=== PATIENT | female | born 1950 | race African-American/Black ===

== ENCOUNTER 2017-07-25 09:14 | Emergency (ER) | payer OTHER ==
[~2017-07-25] VITALS: Ht 180.3 cm; Wt 84.0 kg
[2017-07-25] MEDS ORDERED: HYDROCODONE/ACETAMINOPHEN 5/325MG TABLET PO ONE (10:15)
[2017-07-25 10:25] LABS: BASOPHILS % 0.9 % (0.0-2.0); EOSINOPHILS % 1.6 % (0.0-5.0); HEMOGLOBIN. 13.8 g/dL (12.0-16.0); LYMPHOCYTES % 27.8 % (20.0-50.0); MEAN CORPUSCULAR VOLUME 98.4 fL (81.0-99.0); MONOCYTES % 7.6 % (2.0-8.0); NEUTROPHILS % 62.1 % (40.0-76.0); PLATELET 257 x1000/uL (130-400); RED BLOOD CELL COUNT 4.17 mill/uL (4.2-5.4); RED CELL DISTRIBUTION WIDTH 13.6 % (11.6-14.6)
[2017-07-25 10:32] LABS: CHLORIDE 104 mEq/L (98-107)
[2017-07-25 10:38] LABS: PARTIAL THROMBOPLASTIN TIME 29.7 sec (23.4-31.0)
[2017-07-25 11:41] VITALS: BP 136/66
== END 2017-07-25 12:28 | disposition home or self-care (01) ==
LOC: ER 09:14
DX: S00.83XA Contusion of other part of head, initial encounter (principal); S80.212A Abrasion, left knee, initial encounter; S80.211A Abrasion, right knee, initial encounter; R55 Syncope and collapse; I10 Essential (primary) hypertension; F17.200 Nicotine dependence, unspecified, uncomplicated; M19.90 Unspecified osteoarthritis, unspecified site; W18.09XA Striking against other object with subsequent fall, initial encounter; Y93.89 Activity, other specified; Y92.512 Supermarket, store or market as the place of occurrence of the external cause
CPT/HCPCS: 36415; 70450; 71045; 72125; 73562; 80053; 85025; 85610; 85730; 93005; 99285

== ENCOUNTER 2023-12-14 15:48 | Emergency (ER) | payer OTHER ==
[~2023-12-14] VITALS: Ht 175.3 cm; Wt 63.0 kg
[2023-12-14 15:53] VITALS: TEMP 99.9; O2SAT 98
[2023-12-14 16:27] VITALS: BP 109/47; PULSE 80; RESP 12; O2SAT 97
== END 2023-12-14 17:11 | disposition left against medical advice (07) ==
LOC: ER 15:48
DX: R55 Syncope and collapse (principal); I10 Essential (primary) hypertension; F32.A Depression, unspecified
CPT/HCPCS: 99283